=== PATIENT | female | born 1975 | race Hispanic/Latino ===

== ENCOUNTER → 2024-02-21 | Outpatient (CLI) | payer MEDICAID | END | disposition home or self-care (01) | LOC: SHCH 09:05 | PROVIDERS: ATTEND Internal Medicine Cardiovascular Disease | DX: R00.2 Palpitations (principal) | CPT/HCPCS: 93306 ==

== ENCOUNTER → 2024-08-21 | Outpatient (CLI) | payer MEDICAID ==
--- NOTE | 2024-08-22 07:28 | HMCSR ---
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 (R) 114.6cm/sec, Triphasic, Prof Fem Art. (L) 110.0cm/sec, Biphasic, Fem Art Prox. (R) 86.8cm/sec, Triphasic, Fem Art Prox. (L) 117.0cm/sec, Triphasic, Fem Art Mid. (R) 92.2cm/sec, Triphasic, Fem Art Mid. (L) 99.6cm/sec, Triphasic, Fem Art Dist (R) 77.5cm/sec, Triphasic, Fem Art Dist. (L) 53.8cm/sec, Triphasic, Pop Art(AK) (R) 69.3cm/sec, Triphasic, Pop Art (AK) (L) 51.0cm/sec, Biphasic, Pop Art (Fossa)(R) 61.2cm/sec, Triphasic, Pop Art (Fossa) (L) 50.5cm/sec, Biphasic, Pop Art(BK) (R) 69.3cm/sec, Triphasic, Pop Art (BK) (L) 75.9cm/sec, Biphasic, GRAVE CLEANER Prox. (R) 67.6cm/sec, Biphasic, GRAVE CLEANER Prox. (L) 60.0cm/sec, Biphasic, GRAVE CLEANER Mid. (R) 52.5cm/sec, Biphasic, GRAVE CLEANER Mid. (L) 61.4cm/sec, Biphasic, GRAVE CLEANER Dist. (R) 60.0cm/sec, Biphasic, GRAVE CLEANER Dist. (L) 55.9cm/sec, Biphasic, Per Art Prox. (R) 49.3cm/sec, Biphasic, Per Art Prox. (L) 61.1cm/sec, Biphasic, Per Art Mid. (R) 33.0cm/sec, Biphasic, Per Art Mid. (L) 59.4cm/sec, Biphasic, Per Art Dist. (R) 34.3cm/sec, Biphasic, Per Art Dist. (L) 35.9cm/sec, Biphasic, CHALO Prox. (R) 39.0cm/sec, Biphasic, CHALO Prox. (L) 49.5cm/sec, Biphasic, CHALO Mid. (R) 55.9cm/sec, Biphasic CHALO Mid. (L) 50.5cm/sec, Biphasic, CHALO Dist. (R) 58.0cm/sec, Biphasic, CHALO Dist. (L) 43.7cm/sec, Biphasic, Technologist Impression No evidence of significant arterial insufficiency of bilateral lower extremities. Multiphasic waveforms seen in bilateral lower extremities. Conclusion No evidence of significant arterial insufficiency of bilateral lower extremities. Conclusion No evidence of significant arterial insufficiency of bilateral lower extremities.
== END | disposition home or self-care (01) ==
LOC: SHCH 11:08
PROVIDERS: ATTEND Internal Medicine Cardiovascular Disease
DX: I73.9 Peripheral vascular disease, unspecified (principal)
CPT/HCPCS: 93925

== ENCOUNTER → 2024-10-25 | Outpatient (CLI) | payer MEDICAID | END | disposition home or self-care (01) | LOC: SHCH 09:46 | PROVIDERS: ATTEND Internal Medicine Cardiovascular Disease | DX: I87.1 Compression of vein (principal); I87.2 Venous insufficiency (chronic) (peripheral) | CPT/HCPCS: 93970 ==